=== PATIENT | male | born 1995 ===

== ENCOUNTER 2019-03-13 01:35 | Inpatient (IN) | payer BC, MEDICAID ==
--- NOTE | 2019-03-12 10:46 | LEVENE H&P ---
DATE OF ADMISSION: March 13, 2019 IDENTIFICATION/CHIEF COMPLAINT Madan is a 23-year old disabled individual with Down Syndrome who has a complaint of right lower extremity pain and shortening. HISTORY OF PRESENT ILLNESS The patient was born with dysplastic hip. He was adopted from [place]. He has had progressive pain and difficulty moving. Examination images demonstrate an arthritic hip with severe dysplasia. Surgery is indicated to relieve pain and improve function. PAST MEDICAL HISTORY Notable for the above-noted Down Syndrome. PAST SURGICAL HISTORY Negative. ALLERGIES No known drug allergies. CURRENT MEDICATIONS None. FAMILY HISTORY Unknown as he is adopted. SOCIAL HISTORY Negative for tobacco and alcohol use. REVIEW OF SYSTEMS Negative. PHYSICAL EXAMINATION GENERAL: Healthy appearing individual with minimal communicative skill. ORTHOPEDIC EXAMINATION He ambulates with an antalgic gait. He is significantly short, perhaps 3 to 4 cm by gross clinical measurement on the right lower extremity. He has pain with attempted hip rotation. Radiographs demonstrate basically flat acetabulum, not really well-formed with the femoral head riding high on the wall and the ileum with advanced arthritic change. 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 PLAN I discussed the options with father including subspecialty referral versus the option of proceeding with surgery for hip replacement. The unique risks in Crow's individual include increased risk of dislocation, residual leg length related to the severe shortening, possible high-hip center with chance of early component wear regardless of the performed. Patient is expected to require revision surgery if he lives a longer life. Implants may loosen, migrate or fail. He may have instability, persistent or recurrent pain, need for additional surgery and other unforeseen. There is also risk of blood transfusion or major medical complication including stroke or blood clot. Dad understands the risks and has placed signature on the consent, which is in the chart. No guarantees given or implied. YOON
[2019-03-12 15:51] LABS: INR 1.09
[2019-03-13] VITALS (13 sets, daily range): BP systolic 80–122; BP diastolic 50–102
[~2019-03-13] VITALS: Ht 144.8 cm; Wt 48.1 kg
[~2019-03-13 01:35] MED LIST: DEXTROSE 5% IV ONE; IBUP-1671 PO; TRANEXAMIC AC IV ONE
[2019-03-13] MEDS: NORMOSOL R SOLN(*) 1000 ML BAG 1,000 ML IV PRN ×2 (08:32→14:22)
[2019-03-13] MEDS ORDERED: ACETAMINOPHEN(*)1000 MG/100 ML 100 ML IVPB ONE (09:00)
[2019-03-13] MEDS ORDERED: PREGABALIN 150 MG CAPSULE PO ONE (09:30)
[2019-03-13] MEDS ORDERED: CELECOXIB 200 MG CAP PO ONE (09:30)
[2019-03-13] MEDS ORDERED: TRANEXAMIC AC IV ONE (09:50)
[2019-03-13] MEDS ORDERED: DEXTROSE 5% IV ONE (09:50)
[2019-03-13] MEDS ORDERED: FAMOTIDINE 20 MG/50 ML PREMIX IVPB ONE (10:00)
[2019-03-13] MEDS ORDERED: LIDOCAINE/SOD BICARB 8.4% SYR ID ONE (10:00)
[2019-03-13] MEDS ORDERED: MIDAZOLAM 2 MG/2 ML VIAL IVP PRN (10:00)
[2019-03-13] MEDS ORDERED: ceFAZolin(*) 1 GM VIAL 1 GM in NS(*) 0.9% 100 ML MINI-BAG 100 ML IVPB ONE (10:00)
[2019-03-13] MEDS ORDERED: ROPIVACAINE/EPI/CLONIDINE/KET 50 ML SYRINGE INJ ONE (10:00)
[2019-03-13] MEDS ORDERED: VANCOMYCIN 1 GM VIAL ONE (10:37)
[2019-03-13] MEDS ORDERED: fentaNYL CITR 100 MCG/2 ML AMP ONE ×2 (10:49→14:40)
[2019-03-13] MEDS ORDERED: PROPOFOL EMUL(*) 10MG/ML 20 ML 20 ML ONE (10:50)
[2019-03-13] MEDS ORDERED: LIDOCAINE MPF 1% 5 ML VIAL ONE (10:50)
[2019-03-13] MEDS ORDERED: ONDANSETRON 4 MG/2 ML VIAL ONE (11:33)
[2019-03-13] MEDS ORDERED: DEXAMETHASONE SOD PHOS 10MG/ML ONE (11:33)
[2019-03-13] MEDS ORDERED: BISACODYL 10 MG SUPP PR PRN (14:40)
[2019-03-13] MEDS ORDERED: PROMETHAZINE 25 MG/ML 1 ML AMP IVP PRN (14:40)
[2019-03-13] MEDS ORDERED: ZOLPIDEM TARTRATE 5 MG TAB PO PRN (14:40)
[2019-03-13] MEDS ORDERED: NORMOSOL R SOLN(*) 1000 ML BAG 1,000 ML IV PRN (14:40)
[2019-03-13] MEDS ORDERED: MAGNESIUM HYDROXIDE* 30ML UDCP PO PRN (14:40)
[2019-03-13] MEDS ORDERED: diphenhydrAMINE 25 MG CAP PO PRN (14:40)
[2019-03-13] MEDS ORDERED: diphenhydrAMINE 50 MG/ML VIAL IVP PRN (14:40)
[2019-03-13] MEDS ORDERED: ACETAMINOPHEN 325 MG TAB PO PRN (14:40)
[2019-03-13] MEDS ORDERED: FLUSH 10 ML SYR IVP PRN (14:40)
[2019-03-13] MEDS ORDERED: BENZOCAINE/MENTHOL 1 EACH LOZG PO PRN (14:40)
--- NOTE | 2019-03-13 14:43 | RADIOLOGY IMAGING REPORT ---
FACILITY: [facility] - [place] PATIENT NAME: Mina Rizo : 1995 MR: [id number] V: [id number] EXAM DATE: ORDERING PHYSICIAN: JESSICA LINCOLN TECHNOLOGIST: Location: [facility] - [place] Patient: Mina Rizo : 1995 Visit/Account:[id number] Date of Sevice: 03/13/2019 Exam type: PELVIS History: S/P TOTAL RIGHT HIP ARTHROPLASTY Comparison: None. Findings: A single AP view the pelvis to states right hip arthroplasty that appears in good anatomic alignment on this single AP view. Dysplastic changes of the left hip joint are noted IMPRESSION: 1. As above Report Dictated By: Shirin Valladares MD at 03/13/2019 2:37 PM Report E-Signed By: Shirin Valladares MD at 03/13/2019 2:37 PM WSN:[id number]
--- NOTE | 2019-03-13 15:43 | Hospitalist Consultation ---
History of Present Illness Requesting Physician Dr. Jean Reason for Consult Medical Management Chief Complaint s/p hip replacement History of Present Illness He was admitted s/p hip replacement . It is reported the surgery went well and without complication. History Problems: (1) Down syndrome Status: Chronic Home Meds Reported Medications Ibuprofen (MOTRIN IB) 200 Mg Tablet, 1-2 TAB PO Q6-8H PRN for PAIN 03/09/19 Allergies: Coded Allergies: No Known Drug Allergies (Unverified , 03/09/19) Hx Smoking: No Smoking Status: Never Smoker Caffeine/Cups Per Day: RARE Hx Alcohol Use: No Hx Substance Use Disorder: No Social Drug Use: Never History of IV Drug Use: No Review of Systems All Systems Reviewed/Normal: Yes, Except as Noted Exam Vital Signs Vital Signs Date Time Temp Pulse Resp B/P (MAP) Pulse Ox O2 Delivery O2 Flow Rate FiO2 03/13/19 15:26 97.7 105 16 97/56 (70) 96 Nasal Cannula 2.0 General Appearance: Alert, Awake, No Acute Distress Cardiovascular: Other (tachycardia, regular rhythm noted) Respiratory: No Respiratory Distress, Clear to Auscultation Psych: Appropriate Mood & Affect Assessment and Plan Problems: (1) S/P hip replacement Status: Acute Assessment & Plan: Followed by Dr. Jean. He will be placed on Aspirin for DVT prophylaxis. (2) Down syndrome Status: Chronic Venous Thromboembolism Antithrombotics Is Pt On Any Antithrombotics?: No Problem Qualifiers (1) S/P hip replacement: Laterality: right Qualified Codes: Z96.641 - Presence of right artificial hip joint CHASITY CHOI [facility] Mar 13, 2019 15:43
--- NOTE | 2019-03-13 16:25 | NUR ---
Physical Therapy Impression PT sussy complete. Initially attempted to provide verbal cueing for independent bed mobility, however, Pt unable to maintain hip precautions, thus, this PT and PT student perform Max A supine<>sit transfer via draw sheet to maintain safety with hip precautions. Educated Pt's mother on strategies for bed mobility at home with demonstrations. She verbalized understanding. Pt able to transfer from bed<>commode using PUW and CGA with verbal cueing for "marching" to avoid hip internal rotation with turning. Pt's mother educated on technique. Recommendations pending progress, however, Pt's mother wishes for OP PT if possible. Physical Therapy Goals 1. Min A bed mobility with verbal cueing for hip precautions. 2. CGA/SBA sit<>stand transfers with verbal cueing for hip precautions. 3. CGA/SBA ambulation x 50' with PUW with verbal cueing for safety with direction changes. 4. Pt's family demonstrate understanding of hip precautions and cueing for safety. Patient's Goals
[2019-03-13] MEDS: CELECOXIB 200 MG CAP PO SCH (17:35)
[2019-03-13] MEDS: APAP/HYDROCODONE 325/7.5 TAB PO PRN (18:14)
--- NOTE | 2019-03-13 19:54 | OPERATIVE REPORT 1 ---
EVENT DATE: March 13, 2019 SURGEON: Tato Jean MD ANESTHESIOLOGIST: Ha Hester MD ANESTHESIA: General plus spinal. 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 PROCEDURE PERFORMED Right total hip arthroplasty. ESTIMATED BLOOD LOSS 300 mL. DRAINS None. SPECIMENS None. COMPLICATIONS None apparent. IMPLANTS USED Trident PSL RAPP cluster acetabular shell 44 mm, an MDM liner, cementless, 36 mm, an Accolade II 132-degree neck angle hip stem size zero, an MDM X3 insert for the liner, inner diameter 22.2, outer diameter 36, a [place] LFIT V40 femoral head, outer diameter 22 mm, standard neck length. INDICATIONS Mina is a 23-year-old gentleman with Down syndrome, severe dysplasia with leg length discrepancy and pain related to end-stage hip arthritis. Surgery is indicated to relieve pain and improve function after failure of nonoperative measures. DESCRIPTION OF PROCEDURE Patient is taken to the operating room, placed supine on the operating table. General anesthesia is induced after spinal block is administered by the anesthesiologist. Antibiotics and TXA are administered IV. He is positioned in left lateral decubitus on a well-padded pegboard. Pelvis is secured in a vertical position. All bony prominences and superficial nerves are well padded. Right hip girdle and lower extremity are prepped and draped in the usual sterile fashion for orthopedic surgery. A posterolateral approach is made and carried down through the skin and subcutaneous tissue to the deep fascia. Fascia is incised over the tip of the trochanter, extended distally in line with the femur, proximally in line with the alex fibers. Alex fibers are split bluntly. The abductor mechanism is freed from the external rotators and protected with a blunt Hohmann. L capsulotomy/tenotomy is performed with the horizontal limb above the piriformis, releasing the capsule and the external rotators off the posterolateral femur. These are tagged for later anatomic reattachment. Femoral head is dislocated. End-stage arthritic change is noted. A 1.5 cm neck cut is made consistent with preoperative planning. Femoral head is extracted. The femur is translocated anteriorly. At this point, severe pathologic anatomy of the pelvic bone is noted. Labrum is excised. There is a shelf of flattened bone where the head has been riding and a small irregular crevasse inferiorly which appears to be consistent with the pulvinar. Periacetabular retractors are very carefully placed to avoid entrapment or injury to critical neurovascular structures. The soft tissues down in this area are removed, and there is a medial wall intact as well as a remnant of what appears to be a transverse acetabular ligament. After careful exposure and evaluation circumferentially of the bone stock available, an extra small, 38 mm reamer is used to create the initial bone socket. This is carried down to just above the level of the transverse acetabular ligament to the medial wall. Good bone and containment is noted, and all sides appear well centered. This is expanded up to 44 mm in 2 mm increments where it appears that there is adequate bone coverage and adequate size to permit an MDM liner to be used, which is one of the goals for stability. Trial has nice [id number] fit. A 45 is used to open the floor of the acetabulum, and then the shell is impacted into position with approximately 45 degrees of lateral opening and 15 degrees of anteversion using the extracorporeal guide, internal bony landmarks, and acetabular ligament to guide socket placement. Rock-solid fixation is achieved. No adjuvant fixation is felt to be needed. Shell is lavaged and dried, and the actual liner for the MDM is inserted. Attention is turned to femoral preparation. Superior neck is resected with a cookie cutter. The patient does have increased femoral anteversion, and the size of his femur is very tiny. Given these findings, I felt that we would be best served trying to use the tapered Accolade stem rather than going for distal fixation. The [place] awl finds the canal, and then the zero broach is carefully worked in a lateral position following about the [place] alignment of the calcar at about 20 degrees until the broach can be seated about two rows of teeth above the cot. This has good stability. Trial reduction is performed with the MDM, and good oriental orthodox of the limb length and stability are achievable without undue tension on the sciatic nerve, which is certainly going to be stretched due to the leg length equalization, but is not unduly stretched. The broach is then removed and the wound cleaned up. The actual stem is impacted and seats at a nice height, the same height with good stability. Various neck lengths are tried, and the standard is felt to be optimal. The Stout taper is lavaged and dried, and the MDM head is impacted into position and reduced into the shell. Wound is copiously lavaged. Hemostasis is assured. Due to the severe patulous nature of the capsule in spite of the limb lengthening, this is closeable, and drill holes are made in the posterior femur to reapproximate the external rotators and the capsule. Vancomycin powder is placed deep in the wound. Deep fascia is closed distally with #2 Ethibond, proximally with #2 Vicryl, subcutaneous tissue is closed with 3-0 Vicryl, and the skin with a Monocryl and a perineal adherent dressing. Xeroform is applied for a dry, sterile dressing and compression wrap. Patient is rolled supine. Abduction pillow is placed. He is awakened from anesthesia and taken to the recovery room in stable condition having tolerated the procedure well. PLAN Standard [facility] rehab protocol, weightbearing as tolerated, and attempt at posterior hip precautions understanding patient's compliance will be limited. [facility]
[2019-03-13] MEDS: ceFAZolin(*) 1 GM VIAL 1 GM in NS(*) 0.9% 100 ML MINI-BAG 100 ML IVPB SCH (20:30)
[2019-03-14] MEDS: APAP/HYDROCODONE 325/7.5 TAB PO PRN ×2 (00:50→09:37)
[2019-03-14] MEDS: ceFAZolin(*) 1 GM VIAL 1 GM in NS(*) 0.9% 100 ML MINI-BAG 100 ML IVPB SCH ×2 (04:00→12:37)
[2019-03-14 04:20] VITALS: BP 107/49
[2019-03-14 06:14] LABS: PLATELET COUNT, AUTOMATED 173 K/uL (150-450)
[2019-03-14 07:28] VITALS: BP 95/48
[2019-03-14] MEDS: ASPIRIN 325 MG TAB PO SCH (08:32)
[2019-03-14] MEDS: CELECOXIB 200 MG CAP PO SCH ×2 (08:32→16:29)
--- NOTE | 2019-03-14 08:59 | Hospitalist Progress Note ---
Subjective Progress Notes Subjective He was admitted s/p hip replacement. He had no acute events overnight. Patient Complains of: Cardiovascular: No: Chest Pain Respiratory: No: Shortness of Breath Physical Exam Vital Signs Date Time Temp Pulse Resp B/P (MAP) Pulse Ox O2 Delivery O2 Flow Rate FiO2 03/14/19 07:28 90 03/14/19 07:28 98.3 111 16 95/48 (64) Room Air 03/14/19 04:20 1.0 Intake and Output 03/14/19 00:59 Intake Total 4530 ml Output Total 450 ml Balance 4080 ml Intake Oral 480 ml IV Total 2100 ml Other 1950 ml Output Estimated Blood Loss 450 ml # Voids 3 General Appearance: Alert, Awake, No Acute Distress, Afebrile Cardiovascular: Regular Rate and Rhythm Respiratory: No Respiratory Distress, Clear to Auscultation Psych: Alert & Oriented X3, Appropriate Mood & Affect Result Diagram: 03/14/19 0557 Assessment and Plan Problems: (1) S/P hip replacement Status: Acute Assessment & Plan: Followed by Dr. Jean. He was placed on Aspirin for DVT prophylaxis. (2) Down syndrome Status: Chronic Exam Sepsis Risk: No Definite Risk Problem Qualifiers (1) S/P hip replacement: Laterality: right Qualified Codes: Z96.641 - Presence of right artificial hip joint CHASITY CHOI [facility] Mar 14, 2019 08:59
[2019-03-14] MEDS ORDERED: ASPI-757 PO (09:01)
[2019-03-14 11:02] VITALS: BP 83/78
--- NOTE | 2019-03-14 11:42 | NUR ---
Physical Therapy Impression Pt's family not present this AM for training as Pt will require assistance with functional mobility and compliance with hip precautions due to developmental delay. Pt not safe to DC until Pt's family present for training. PT will be available for this training when family arrives. Physical Therapy Goals 1. Min A bed mobility with verbal cueing for hip precautions. 2. CGA/SBA sit<>stand transfers with verbal cueing for hip precautions. 3. CGA/SBA ambulation x 50' with PUW with verbal cueing for safety with direction changes. 4. Pt's family demonstrate understanding of hip precautions and cueing for safety. Patient's Goals
--- NOTE | 2019-03-14 11:59 | Medical Nutrition Therapy ---
Nutrition Anthropometrics Height (Inches): 57.00 Height (Calculated Centimeters: 144.371636 Weight (Pounds): 106 Weight (Calculated Kilograms): 48.081 BMI: 22.9 Shawn Nutrition Score: Adequate Shawn Nutrition Risk Score: 18 Dietary Referral Nutrition Risk Factors: Nutrition Risk Comment: Physical Findings Physical Appearance: Skin Appearance Skin Appearance: R Hip Incision Edema Edema Location Modifier: Edema Location: Type of Edema: Degree of Edema: Gastrointestinal Symptoms GI Symtoms: Tube Present: Bowel Sounds: Hypoactive Recent Bowel Pattern: Stool Characteristics: Nutrition/Food History Good Skipped Meals: No Nutritional Diagnosis Nutritional Risk Acuity 4: Good Appetite Nutritional Acuity: 4-Low Energy Requirement: 1674 (HBE) Protein Requirement: 58 (1.2g/kg (For healing r/t hip surgery)) Fluid Requirement: 1674 (1kcal/mL) Diet Type: Regular Nutrition Intervention: Cont diet as ordered Nutrition Monitoring & Eval Nutrition Goals: Eat 75-100% Meal Nutrition Follow-Up: Good Intake Nutrition Monitoring: Monitor intake and weight. RD Patient Assessment Time: [address] Assessment Type: RD Screen Patient Nutrition Acuity: 4-Low Follow Up Date: Mar 21, 2019 Nutritional Comment: Reviewed pt charting. Notable PMH of downs syndrome. Pt eating well 100% x 2 meals. Recommend slightly higher protein for healing r/t R Hip Replacement. Will continue to monitor intake while here and encourage adequate intake for healng of incision. SHAJI ZUÑIGA Mar 14, 2019 11:49
[2019-03-14] MEDS: DIAZEPAM 5 MG TAB PO PRN (12:36)
--- NOTE | 2019-03-14 15:03 | NUR ---
This Physical Therapist or Bicycle Messenger was present for the entire physical therapy session directing the services, making the skilled judgement, and was not engaged in treating another patient or doing another task at the same time as the treatment session. Addendum: 03/14/19 at 1503 by LOGAN GOMEZ PT Amended: Links added.
--- NOTE | 2019-03-14 15:03 | NUR ---
Physical Therapy Impression Pt demonsrtated improved gait, ambulating much further, and followed precautions throughout session with minimal cueing. Family was not present this PM for education and training. Pt required minAx2 for bed mobility, while following all precautions. Pt ambulated 60 ft. w/ CGAx1 and use of PUW. Pt was initally apprehensive to put weight on surgical leg, once this was done Pt had no problems with gait. Pt was eager to try and walk further. Verbal cues given to "december while turning" to ensure following of hip precautions. Pt was left in bed w/ all needs met and call light in reach. Pt would benefit from further skilled PT care to improve endurance and to provide family education. OP PT rec at discharge. Physical Therapy Goals 1. Min A bed mobility with verbal cueing for hip precautions. 2. CGA/SBA sit<>stand transfers with verbal cueing for hip precautions. 3. CGA/SBA ambulation x 50' with PUW with verbal cueing for safety with direction changes. 4. Pt's family demonstrate understanding of hip precautions and cueing for safety. Patient's Goals
[2019-03-14 15:10] VITALS: BP 91/47
[2019-03-14 18:52] VITALS: BP 96/61
[2019-03-15 00:06] VITALS: BP 95/51
[2019-03-15] MEDS: APAP/HYDROCODONE 325/7.5 TAB PO PRN ×3 (00:08→08:33)
[2019-03-15 06:11] LABS: PLATELET COUNT, AUTOMATED 173 K/uL (150-450)
[2019-03-15 06:44] VITALS: BP 96/61
[2019-03-15] MEDS: ASPIRIN 325 MG TAB PO SCH (08:33)
[2019-03-15] MEDS: CELECOXIB 200 MG CAP PO SCH (08:33)
[2019-03-15] MEDS ORDERED: HYDR-654 PO (09:14)
--- NOTE | 2019-03-15 10:25 | NUR ---
Physical Therapy Impression Pt demonstrates mobility adequate for safe DC home with family assistance. Pt's mother and brother thoroughly educated on hip precautions and appropriate cueing for these precautions with returned demonstration. Pt safe for DC. Physical Therapy Goals 1. Min A bed mobility with verbal cueing for hip precautions. 2. CGA/SBA sit<>stand transfers with verbal cueing for hip precautions. 3. CGA/SBA ambulation x 50' with PUW with verbal cueing for safety with direction changes. 4. Pt's family demonstrate understanding of hip precautions and cueing for safety. Patient's Goals
[2019-03-15] MEDS: DIAZEPAM 5 MG TAB PO PRN (10:43)
[2019-03-15 11:09] VITALS: BP 95/64
--- NOTE | 2019-03-15 11:21 | Hospitalist Progress Note ---
Subjective Progress Notes Subjective He was admitted s/p hip replacement. He had no acute events overnight. Patient Complains of: Cardiovascular: No: Chest Pain Respiratory: No: Shortness of Breath Physical Exam Vital Signs Date Time Temp Pulse Resp B/P (MAP) Pulse Ox O2 Delivery O2 Flow Rate FiO2 03/15/19 07:44 86 03/15/19 07:37 91 Room Air 03/15/19 06:44 98.1 16 96/61 (73) 03/15/19 00:45 0.5 Intake and Output 03/15/19 07:00 Intake Total 360 ml Balance 360 ml Intake Oral 360 ml # Voids 2 # Bowel Movements 1 General Appearance: Alert, Awake, No Acute Distress, Afebrile Neuro: No Gross deficits Cardiovascular: Regular Rate and Rhythm Respiratory: No Respiratory Distress, Clear to Auscultation GI: Soft and Non-Tender Psych: Alert & Oriented X3, Appropriate Mood & Affect Result Diagram: 03/15/19 0537 Assessment and Plan Problems: (1) S/P hip replacement Status: Acute Assessment & Plan: Followed by Dr. Jean. He was placed on Aspirin for DVT prophylaxis. (2) Down syndrome Status: Chronic Exam Sepsis Risk: No Definite Risk Problem Qualifiers (1) S/P hip replacement: Laterality: right Qualified Codes: Z96.641 - Presence of right artificial hip joint CHASITY CHOI [facility] Mar 15, 2019 11:21
== END 2019-03-15 11:30 | disposition home or self-care (01) | DRG 470 ==
LOC: OR 01:35 → MED 15:25 → INTOOBSV 15:25 → OBSVTOIN 15:25
PROVIDERS: ADMIT Orthopaedic Surgery; ATTEND Orthopaedic Surgery
PROC: 0SR90JA Replacement of Right Hip Joint with Synthetic Substitute, Uncemented, Open Approach (ICD-10-PCS; principal; 2019-03-13 11:10)
DX: M16.11 Unilateral primary osteoarthritis, right hip (principal); Q90.9 Down syndrome, unspecified; Q65.89 Other specified congenital deformities of hip
CPT/HCPCS: 36415; 72170; 85025; 85610; 86850; 86900; 86901; 97163; 97165; J0131; J0690; J1100; J2001; J2405; J2704; J3010; J3370; J7060